=== PATIENT | male | born 1990 | race Caucasian/White ===

== ENCOUNTER 2017-08-06 18:53 | Inpatient (IN) | payer MEDICAID ==
[~2017-08-06] VITALS: Ht 182.9 cm; Wt 86.2 kg
--- NOTE | 2017-08-06 19:00 | NUR ---
RENETTA-- PER REPORT PATIENT'S GIRLFRIEND CALLED RESCUE DT PATIENT WAS "ACTING BIZZARE AND CONFUSED." PATIENT ARRIVED AWAKE, HOWEVER CONFUSED. APPEARS IN MILD DISTRESS. SATING 95% ON ROOM AIR,. PATIENT REMAINS ALTERED. PT WITH HX OF DM. GOWNED PT AND PLACED ON TELE MONITOR,. VSS
--- NOTE | 2017-08-06 19:02 | NUR ---
MD RONDON AT BS
--- NOTE | 2017-08-06 19:02 | NUR ---
LAB SAMPLE SENT TO LAB
--- NOTE | 2017-08-06 19:03 | NUR ---
IN NS STARTED ORDERED
[2017-08-06 19:08] LABS: BASOPHILS % (AUTO) 0.8 % (0.0-2.0); EOSINOPHILS # (AUTO) 0.1 /CMM (0.0-0.7); EOSINOPHILS % (AUTO) 1.6 % (0.0-6.0); HEMATOCRIT 26 % (39-51); HEMOGLOBIN 7.9 g/dL (13.5-17.5); LYMPHOCYTES % (AUTO) 26.2 % (20.0-44.0); MEAN CORPUSCULAR HEMOGLOBIN 21 PG (26.0-33.0); MEAN CORPUSCULAR HGB CONC 30 g/dl (31.0-36.0); MEAN CORPUSCULAR VOLUME 70 fL (80-96); MONOCYTES # (AUTO) 0.4 /CMM (0.1-1.30); MONOCYTES % (AUTO) 9.5 % (2.0-12.0); NEUTROPHILS # (AUTO) 2.3 /CMM (1.8-8.9); NEUTROPHILS % (AUTO) 61.9 % (43.0-81.0); PLATELET COUNT (AUTO) 108 /CMM (150-450); RED BLOOD CELL COUNT(AUTO) 3.77 MIL/uL (4.5-6.0); WHITE BLOOD COUNT (AUTO) 3.8 K/uL (4.3-11.0)
--- NOTE | 2017-08-06 19:08 | NUR ---
BLOOD SUGAR VIA FINGER STICK-- 356
[2017-08-06 19:14] LABS: CALCIUM, SERUM 8.2 mg/dL (8.5-10.1); CREATININE 1.2 mg/dL (0.6-1.3); POTASSIUM 4.1 mmol/L (3.5-5.1)
[2017-08-06 19:20] LABS: BILIRUBIN,DIRECT 0.1 mg/dL (0.0-0.2); BILIRUBIN,TOTAL 0.3 mg/dL (0.2-1.0); TOTAL PROTEIN, SERUM 6.3 g/dL (6.4-8.2)
--- NOTE | 2017-08-06 19:23 | NUR ---
PT S/O AT BEDSIDE.
--- NOTE | 2017-08-06 19:24 | NUR ---
PT TRANSPORTED TO RADIOLOGY FOR CT HEAD.
--- NOTE | 2017-08-06 19:32 | NUR ---
PT BACK FROM RADIOLOGY. PENDING CT HEAD RESULT.
--- NOTE | 2017-08-06 19:55 | NUR ---
[facility] CALLED ITS DR. Ramirez
[2017-08-06 20:07] LABS: ABG BASE EXCESS 2.7 mmol/L; ABG PCO2 59.2 mmHg (35.0-45.0); ABG PH 7.316 (7.350-7.450); COHb 0.9 % (0.5-1.5); O2Hb 38.3 % (94.0-97.0); VENT MODE, BG RA
--- NOTE | 2017-08-06 20:12 | NUR ---
TELE 322-2
[2017-08-06 20:35] LABS: SERUM AMMONIA 22 umol/L (11-32)
--- NOTE | 2017-08-06 21:17 | NUR ---
report called to teletypist mark. will transport pt via acls protocol.
[2017-08-06 21:19] LABS: APPEARANCE,URINE Clear (CLEAR); BILIRUBIN,URINE Negative (NEGATIVE); BLOOD, URINE Negative Ery/uL (NEGATIVE); COLOR,URINE Yellow (YELLOW); KETONES,URINE Negative (NEGATIVE); LEUKOCYTE ESTERASE ,URINE Negative (NEGATIVE); NITRITE, URINE Negative (NEGATIVE); PH,URINE 6.5 (5.0-8.0); PROTEIN,URINE Negative (NEGATIVE); UGLUCOSE 500 MG/DL mg/dL (NEGATIVE); UROBILINOGEN,URINE 0.2 EU/dL (0.2)
--- NOTE | 2017-08-06 21:20 | NUR ---
RN MS ADMIT PT ARRIVED ON UNIT. AAOX3, AMBULATORY WITH ASSIST. NO S/S OF RESPIRATORY DISTRESS, NO C/O PAIN OR DISCOMFORT. 99% ON RA. BREATHING NON-LABORED AND EVEN.IV INTACT AND PATENT. ASSESSMENT COMPLETE. ORIENTATED TO UNIT AND CALL LIGHT. WILL CONT TO MONITOR.
[2017-08-06 22:00] VITALS: BP 147/69
[2017-08-06] MEDS ORDERED: CETI-102 PO (22:07)
[2017-08-06] MEDS ORDERED: PROP10TA10 PO (22:07)
[2017-08-06] MEDS ORDERED: MORP30TA PO (22:07)
[2017-08-06] MEDS ORDERED: PREG75CA PO (22:07)
[2017-08-06] MEDS ORDERED: BLOO-668 IN (22:07)
[2017-08-06] MEDS ORDERED: NABU750T2 PO (22:07)
[2017-08-06] MEDS ORDERED: OXYC10TA49 PO (22:07)
--- NOTE | 2017-08-06 22:14 | NUR ---
RN NOTE INFORMED DR VASQUEZ OF PT LACTIC ACID LEVEL OF 2.1, AND UPDATED MED REC. NO NEW ORDERS AT THIS TIME. MD MADE AWARE THAT PT IS AWAKE/ALERT AND CAN SWALLOW. ORDERED TO CHANGE DIET TO REGULAR. WILL CARRY OUT.
[2017-08-06] MEDS ORDERED: LORA1TAB82 PO (22:50)
--- NOTE | 2017-08-06 22:50 | NUR ---
DYED RAW STOCK BLOWER FEEDER AT BEDSIDE
[2017-08-06 23:48] LABS: EOSINOPHILS % (MANUAL) 2 % (0-4); LYMPHOCYTES % (MANUAL) 25 % (16-48); MONOCYTES % (MANUAL) 8 % (0-11.0); NEUTROPHILS % (MANUAL) 65 (42-76)
[2017-08-07 07:14] LABS: BASOPHILS % (AUTO) 0.5 % (0.0-2.0); EOSINOPHILS % (AUTO) 1.4 % (0.0-6.0); HEMATOCRIT 23 % (39-51); HEMOGLOBIN 7.2 g/dL (13.5-17.5); LYMPHOCYTES # (AUTO) 0.8 /CMM (0.8-4.8); LYMPHOCYTES % (AUTO) 34.9 % (20.0-44.0); MEAN CORPUSCULAR HEMOGLOBIN 22 PG (26.0-33.0); MEAN CORPUSCULAR HGB CONC 31 g/dl (31.0-36.0); MEAN CORPUSCULAR VOLUME 70 fL (80-96); MONOCYTES # (AUTO) 0.2 /CMM (0.1-1.30); MONOCYTES % (AUTO) 8.3 % (2.0-12.0); NEUTROPHILS # (AUTO) 1.3 /CMM (1.8-8.9); NEUTROPHILS % (AUTO) 54.9 % (43.0-81.0); PLATELET COUNT (AUTO) 87 /CMM (150-450); RDW COEFFICIENT OF VARIATION 16.9 (11.5-15.0); WHITE BLOOD COUNT (AUTO) 2.4 K/uL (4.3-11.0)
--- NOTE | 2017-08-07 07:20 | NUR ---
MS RN OPENING NOTE RECEIVED PT FROM NIGHTSHIFT NURSE IN STABLE CONDITION. OT IS A/O X3. NO SOB OR SIGNS OF DISTRESS NOTED. BREATHING IS EVEN AND UNLABORED. PT IS ON RA AND SATING WELL @ 99%. PT DENIES ANY PAIN AT THIS TIME. IV PRESENT IN LEFT AC 18G. IV IS PATENT AND INTACT. PT IS CURRENTLY RECEIVING AN INFUSION OF 1/2 NS @ 150ML/HR. PT IS TOLERATING INFUSION WELL. NO REDNESS OR SIGNS OF INFILTRATION NOTED. PT'S GIRLFRIEND IS AT BEDSIDE. BED IN LOW LOCKED POSITION, SIDE RAILS UP X2, CALL LIGHT WITHIN REACH. WILL CONTINUE TO MONITOR.
[2017-08-07 07:46] LABS: ALBUMIN 3.1 g/dL (3.4-5.0); BILIRUBIN,TOTAL 0.3 mg/dL (0.2-1.0); CREATININE 0.7 mg/dL (0.6-1.3); MAGNESIUM 1.8 mg/dL (1.8-2.4); PHOSPHORUS 3.7 mg/dL (2.5-4.9); POTASSIUM 4.2 mmol/L (3.5-5.1); TOTAL PROTEIN, SERUM 5.2 g/dL (6.4-8.2)
[2017-08-07 07:53] LABS: THYROID STIMULATING HORMONE 1.54 uIU/mL (0.358-3.74)
[2017-08-07 08:00] VITALS: BP 156/94
[2017-08-07 08:28] LABS: BAND % (MANUAL) 1 % (0.0-5.0); EOSINOPHILS % (MANUAL) 3 % (0-4); LYMPHOCYTES % (MANUAL) 29 % (16-48); MONOCYTES % (MANUAL) 7 % (0-11.0); NEUTROPHILS % (MANUAL) 60 (42-76)
[2017-08-07 08:39] VITALS: BP 156/94
--- NOTE | 2017-08-07 09:06 | NUR ---
MS RN NOTES PT IS INSISTING THAT HE LEAVE AGAINST MEDICAL ADVICE. ANI THE SENIOR INFORMATION SECURITY ENGINEER WAS MADE AWARE AND SPOKE TO THE PATIENT IN THIS REGARDED. ANI ADVISED THAT PATIENT TO STAY SO THAT WE CAN CONTINUE TO MONITOR HIS LABS INCLUDING IS H/H THERE IS A SUSPECTED BLEED. EVEN WITH A THOROUGH EXPLANATION OF THIS THE PT STILL INSISTS ON LEAVING. THE PT WAS ADVISED TO SEE HIS PRIMARY CARE PHYSICIAN SOON POSSIBLE. THE PT. VERBALIZED FULL UNDERSTANDING OF ALL THE RISKS INVOLVED IN LEAVING AMA AND OF THE DISCHARGE INSTRUCTIONS.
--- NOTE | 2017-08-07 09:33 | NUR ---
MS RN D/C AMA NOTE PT. LEFT FACILITY WITH HIS GIRLFRIEND AGAINST MEDICAL ADVISE. EXITCARE WAS GIVEN TO PT. PT SIGNED AMA FORM. THIS WAS WITNESSED BY BOTH MYSELF AND ANI THE TRANSMISSION WORKER. PT SIGNED EX[employer]ARE PAPERWORK AND BELONGINGS FORM. ALL BELONGINGS WERE TAKEN BY THE PT. IV SUCCESSFULLY REMOVED. ALL NEEDS WERE MET DURING SHIFT AND ORDERS CARRIED OUT ACCORDINGLY. INCIDENT REPORT COMPLETED.
== END 2017-08-07 10:00 | disposition left against medical advice (07) | DRG 420 ==
LOC: ER 18:55 → MED 20:15
PROVIDERS: ADMIT Internal Medicine; ATTEND Internal Medicine
DX: E10.65 Type 1 diabetes mellitus with hyperglycemia (principal); G93.41 Metabolic encephalopathy; D61.818 Other pancytopenia; E87.2 Acidosis; R16.1 Splenomegaly, not elsewhere classified; D50.9 Iron deficiency anemia, unspecified; D63.8 Anemia in other chronic diseases classified elsewhere; E86.0 Dehydration; Z86.718 Personal history of other venous thrombosis and embolism; Z79.4 Long term (current) use of insulin; F10.21 Alcohol dependence, in remission
CPT/HCPCS: 36415; 36600; 70450-TC; 71010-TC; 76700-TC; 80048-TC; 80053-TC; 80061-TC; 80076-TC; 80305; 81000-TC; 82140-TC; 82962-TC; 83605-TC; 83690-TC; 83735-TC; 84100-TC; 84443-TC; 85025-TC; 86850-TC; 87081-TC; A4606; C9113; J1815; J2916; J3490; J7030; Z7610